=== PATIENT | female | born 1965 | race African-American/Black ===

== ENCOUNTER 2017-03-11 15:21 | Emergency (ER) | payer SELFPAY ==
[~2017-03-11] VITALS: Ht 160 cm; Wt 73.0 kg
[~2017-03-11 15:21] MED LIST: MOTRIN
[2017-03-11 15:31] VITALS: BP 136/79
--- NOTE | 2017-03-11 20:07 | NUR ---
PATIENT LEFT WITHOUT BEING SEEN BY DR. LEACH. NO FURTHER CARE PROVIDED FOR PATIENT.
== END 2017-03-11 20:07 | disposition left against medical advice (07) ==
LOC: MED 15:21
DX: R05 Cough (principal); M79.1 Myalgia; Z53.21 Procedure and treatment not carried out due to patient leaving prior to being seen by health care provider